=== PATIENT | male | born 1980 | race Caucasian/White ===

== ENCOUNTER → 2018-02-07 | Outpatient (REF) | payer BC ==
[~2018-02-07] MED LIST: CYC10 PO; IBU800 PO; NO ROUTINE MEDS
== END ==
LOC: ZZSENDIN 13:50
PROVIDERS: ATTEND Family Medicine
DX: E29.1 Testicular hypofunction (principal)
CPT/HCPCS: 84403

== ENCOUNTER → 2019-05-12 | Outpatient (CLI) | payer BC ==
--- NOTE | 2019-05-12 15:01 | RADIOLOGY IMAGING REPORT ---
FACILITY: [facility] [place] PATIENT NAME: Gokul Brunner : 1980 MR: [id number] V: [id number] EXAM DATE: ORDERING PHYSICIAN: ALICE OSUNA TECHNOLOGIST: Location: [facility] Patient: Gokul Brunner : 1980 Visit/Account:[id number] Date of Sevice: 05/12/2019 PARATHYROID IMAGING HISTORY: Hyperparathyroidism. TECHNIQUE: 25.2 mCi Tc-99m Sestamibi was injected intravenously. Gamma camera images were obtained o f the head, neck and chest at 15 minutes and 3 hours in various orientations following radiotracer ad ministration. SPECT imaging was also performed at 3 hours. COMPARISON: None. FINDINGS: 15 minute images: Normal uptake of tracer by the salivary glands, the thyroid gland, and the myocard ium. Excreted hepatobiliary activity is seen beneath the diaphragm. 3 hour images: Normal washout of tracer from the thyroid gland. No focal areas of abnormal radiotrac er uptake are identified in the neck or mediastinum to suggest the presence of a parathyroid adenoma. IMPRESSION: No scintigraphically evident parathyroid adenoma. Report Dictated By: Mika Veras MD at 05/12/2019 2:49 PM Report E-Signed By: Mika Veras MD at 05/12/2019 2:55 PM MICHEALN:OMAR
== END ==
LOC: NUC 06:54
PROVIDERS: ATTEND Internal Medicine Endocrinology, Diabetes & Metabolism
DX: E21.3 Hyperparathyroidism, unspecified (principal)
CPT/HCPCS: 78070; A9500

== ENCOUNTER → 2019-05-13 | Outpatient (CLI) | payer BC ==
[~2019-05-13] MED LIST changes: +GADOBENATE 529MG/1ML 15ML VIAL IVP ONE; +NS(*) 0.9% 50 ML BAG 50 ML ONE
--- NOTE | 2019-05-13 15:19 | RADIOLOGY IMAGING REPORT ---
FACILITY: [facility] PATIENT NAME: Gokul Brunner : 1980 MR: [id number] V: [id number] EXAM DATE: ORDERING PHYSICIAN: ALICE OSUNA TECHNOLOGIST: Location: [facility] [place] Patient: Gokul Brunner : 1980 Visit/Account:[id number] Date of Sevice: 05/13/2019 Study: MRI of the brain without and with gadolinium contrast. Indication: Hypogonadism Comparison study: None Contrast used: 15 mL MultiHance gadolinium contrast Technique: Multiplanar MRI sequences were obtained through the brain before and after the administrat ion of gadolinium contrast. The examination demonstrates no evidence of acute intracranial hemorrhage. There is no evidence of ex tra-axial collection or hydrocephalus. There is no abnormal signal identified within the brain parenchyma. The pituitary gland is unremarkable in appearance. There is no evidence of enlargement of the pituita ry gland. There is no evidence of hypoenhancement within the pituitary gland after the administration of intravenous contrast. The pituitary infundibulum is midline. The cavernous sinuses are unremarkable in appearance. There is no evidence of abnormality of the pineal gland. A diffusion-weighted sequence was performed and demonstrates no evidence of active ischemia. There is no evidence of active infarct The orbits are unremarkable. The paranasal sinuses are unremarkable Following the administration of gadolinium contrast, there is no abnormal intracranial contrast enhan cement. IMPRESSION:Unremarkable MRI of the brain without and with intravenous contrast. Specifically, there i s no evidence of abnormality of the pituitary gland. Report Dictated By: Chris Multani at 05/13/2019 3:09 PM Report E-Signed By: Chris Multani at 05/13/2019 3:12 PM WSN:[email or web address]
== END ==
LOC: MRI 00:45
PROVIDERS: ATTEND Internal Medicine Endocrinology, Diabetes & Metabolism
DX: E29.1 Testicular hypofunction (principal)
CPT/HCPCS: 70553; A9577; J7050

== ENCOUNTER → 2019-05-18 | Outpatient (CLI) | payer BC ==
[~2019-05-18] MED LIST changes: -GADOBENATE 529MG/1ML 15ML VIAL IVP ONE; -NS(*) 0.9% 50 ML BAG 50 ML ONE
--- NOTE | 2019-05-18 09:54 | RADIOLOGY IMAGING REPORT ---
FACILITY: [facility] - [place] PATIENT NAME: Gokul Brunner : 1980 MR: [id number] V: [id number] EXAM DATE: ORDERING PHYSICIAN: ALICE OSUNA TECHNOLOGIST: Location: [facility] [place] Patient: Gokul Brunner : 1980 Visit/Account:[id number] Date of Sevice: 05/18/2019 THYROID EXAMINATION: Thyroid ultrasound Additional Pertinent history: none COMPARISON STUDIES: None FINDINGS: Thyroid size: Right lobe 4.9 x 1.8 x 2.1 cm Left lobe 4.8 x 2.0 x 1.4 cm Isthmus 0.4 cm Thyroid nodules: Right lobe - there is a smooth bordered well-circumscribed isoechoic nodule, midportion that me asures 1.6 x 0.8 x 1.2 cm. In the lower pole, adjacent to the isthmus there is a hypoechoic well-cir cumscribed smooth nodule, 0.9 x 0.5 x 1.0 cm. At the base of the right thyroid lobe, there is a nodu le adjacent to the thyroid gland measures 1.3 x 0.6 x 0.9 cm. This is most consistent with the parat hyroid gland. Left lobe - on the cine images transverse left thyroid lobe, there is a nodule adjacent to the lower pole of the left thyroid gland, which is hypoechoic and well-circumscribed and measures 0.7 x 0 .4 cm, likely representing the parathyroid gland. Heterogeneous echotexture seen throughout the left thyroid lobe, without discrete nodule. Isthmus - none Thyroid vascularity: normal IMPRESSION: 1. There is a nodule outside the thyroid, adjacent to the thyroid tissue of both right and left thyr oid lobe, consistent with parathyroid gland. The right-sided parathyroid gland measures 1.3 cm in gr eatest size, left-sided parathyroid gland measures 0.7 cm in greatest size. On the prior parathyroid nuclear medicine gland study 05/12/2019, no significant radiotracer activity seen at the base of the right and left thyroid gland. 2. Nodule right thyroid lobe, which demonstrates low suspicion ultrasound pattern. The nodule measu res 1.6 cm. Recommend fine-needle aspiration for further evaluation. 3. Right thyroid gland lower pole demonstrates low suspicion ultrasound nodule. Recommend one-year ultrasound follow-up. Report Dictated By: Peter Lamar at 05/18/2019 9:33 AM Report E-Signed By: Peter Lamar at 05/18/2019 9:48 AM WSN:[email or web address]
== END ==
LOC: US 07:25
PROVIDERS: ATTEND Internal Medicine Endocrinology, Diabetes & Metabolism
DX: E04.2 Nontoxic multinodular goiter (principal)
CPT/HCPCS: 76536

== ENCOUNTER → 2019-06-12 | Outpatient (CLI) | payer BC ==
[2019-06-12 09:19] LABS: INR 0.96
--- NOTE | 2019-06-12 13:14 | RADIOLOGY IMAGING REPORT ---
FACILITY: [facility] [place] PATIENT NAME: Gokul Brunner : 1980 MR: [id number] V: [id number] EXAM DATE: ORDERING PHYSICIAN: ALICE OSUNA TECHNOLOGIST: Location: [facility] [place] Patient: Gokul Brunner : 1980 Visit/Account:[id number] Date of Sevice: 06/12/2019 Ultrasound guided thyroid fine-needle aspiration Indication: Right thyroid nodule. Comparison: Recent thyroid ultrasound 05/18/2019 is reviewed. Findings: After informed consent was obtained, the patient was prepped and draped in the standard aram rile sterile fashion. Local anesthesia was obtained with 1% lidocaine. Using ultrasound guidance, 4 fine-needle aspirates were obtained of a predominantly solid nodule with in the anterior midpole of the right thyroid gland. Pathology reported that the sample was adequate. There were no immediate complications and the patient tolerated the procedure well. IMPRESSION: 1. Successful ultrasound guided fine needle aspiration of a right midpole anteriorly located thyroid nodule. Report Dictated By: Giancarlo Freed at 06/12/2019 1:04 PM Report E-Signed By: Giancarlo Freed at 06/12/2019 1:07 PM WSN:[email or web address]
== END ==
LOC: LAB 03:45
PROVIDERS: ATTEND Internal Medicine Endocrinology, Diabetes & Metabolism
DX: E04.1 Nontoxic single thyroid nodule (principal)
CPT/HCPCS: 10005; 36415; 85610; 88104; 88172